=== PATIENT | female | born 1965 | race Caucasian/White ===

== ENCOUNTER 2016-12-08 21:15 | Emergency (ER) | payer BC, OTHER ==
[2016-12-08 22:08] VITALS: BP 134/94
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
--- NOTE | 2016-12-08 22:55 | RAD ---
INDICATION: Neck pain. COMPARISON: There are no prior studies available for comparison. TECHNIQUE: 5 views of the cervical spine were obtained including lateral, oblique, AP, open-mouth odontoid views. FINDINGS: C1-C7 are visualized. There is mild retrolisthesis of C5 relative the C6 of approximately 2 mm which appears to be degenerative in origin. No prevertebral soft tissue swelling or fracture is seen. There is moderate disc space narrowing and uncinate process spurring present at the C5-C6 level and mild to moderate bilateral neural foraminal narrowing at that level. IMPRESSION: 1. NO EVIDENCE FOR FRACTURE. 2. MODERATE CERVICAL SPONDYLOSIS AT THE C5-C6 LEVEL.
== END 2016-12-08 23:13 | disposition home or self-care (01) ==
LOC: UCCORT 21:15
DX: S16.1XXA Strain of muscle, fascia and tendon at neck level, initial encounter (principal); V40.5XXA Car driver injured in collision with pedestrian or animal in traffic accident, initial encounter; Y93.89 Activity, other specified; Y92.410 Unspecified street and highway as the place of occurrence of the external cause; Z88.6 Allergy status to analgesic agent; E03.9 Hypothyroidism, unspecified; K21.9 Gastro-esophageal reflux disease without esophagitis; F41.8 Other specified anxiety disorders; Z96.653 Presence of artificial knee joint, bilateral; Z96.642 Presence of left artificial hip joint; Z90.711 Acquired absence of uterus with remaining cervical stump
CPT/HCPCS: 72050; 99213; G0463

== ENCOUNTER 2017-09-11 16:58 | Emergency (ER) | payer BC ==
[2017-09-11 17:36] VITALS: BP 134/83
--- NOTE | 2017-09-11 18:40 | UC ---
Ear Complaint HPI - HPI Summary HPI Summary: URI sx x 5 days now with sinus pain and left ear pain. Swollen gland under left jaw. No cough - History of Current Complaint Chief Complaint: UCEar Stated Complaint: EAR PAIN Time Seen by Provider: 09/11/17 18:33 Hx Obtained From: Patient Hx Last Menstrual Period: 2003 Onset/Duration: Gradual Onset, Lasting Days - 5, Worse Since - today Severity Initially: Mild Severity Currently: Moderate Pain Intensity: 5 Aggravating Factors: Nothing Alleviating Factors: Nothing Associated Signs/Symptoms: Positive: Swelling @ - left submandibular gland, URI Symptoms. Negative: Discharge, Hearing Loss Related History: Seasonal Allergies - Allergies/Home Medications Allergies/Adverse Reactions: Allergies Allergy/AdvReac Type Severity Reaction Status Date / Time Acetaminophen [From Tylenol] Allergy Hives Verified 09/11/17 17:36 Aspirin Allergy Hives Verified 09/11/17 17:36 Ibuprofen Allergy Hives Verified 09/11/17 17:36 Iodine Allergy Hives Verified 09/11/17 17:36 NSAIDs Allergy Hives Verified 09/11/17 17:36 Povidone Iodine Allergy Hives Verified 09/11/17 17:36 [From Betadine] KIWI Allergy Swelling Uncoded 09/11/17 17:36 Surgical tape Allergy Rash Uncoded 09/11/17 17:36 PMH/Surg Hx/FS Hx/Imm Hx Previously Healthy: Yes Other History Of: Negative For: HIV, Hepatitis B, Hepatitis C, Anticoagulant Therapy - Surgical History Surgical History: Yes Surgery Procedure, Year, and Place: PARTIAL HYSTERECTOMY 2003. Bilat Knee replacement. Left hip replacement. Back fusion x3 separate surgeries - Family History Known Family History: Positive: Cardiac Disease, Hypertension Negative: Diabetes - Social History Occupation: Unemployed Lives: With Family Alcohol Use: None Substance Use Type: None, Prescribed Smoking Status (MU): Never Smoked Tobacco - Immunization History Most Recent Influenza Vaccination: 2016 Review of Systems Constitutional: Fever, Chills ENT: Sore Throat, Ear Ache, Nasal Discharge, Sinus Pain/Tenderness Is Patient Immunocompromised?: No All Other Systems Reviewed And Are Negative: Yes Physical Exam Triage Information Reviewed: Yes Appearance: No Pain Distress, Well-Nourished, Ill-Appearing Vital Signs: Initial Vital Signs Temp 97.5 F 09/11/17 17:28 Pulse 85 09/11/17 17:28 Resp 16 09/11/17 17:28 BP 134/83 09/11/17 17:28 Pulse Ox 100 09/11/17 17:28 Vital Signs Reviewed: Yes Eyes: Positive: Conjunctiva Clear ENT: Positive: Pharynx normal, Nasal congestion, TMs normal Neck: Positive: Tenderness @ - left anterior cervical lymph nose, Enlarged Nodes @ - left anterior Respiratory Exam: Normal Cardiovascular Exam: Normal Musculoskeletal Exam: Normal Neurological Exam: Normal Psychological Exam: Normal Skin Exam: Normal Ear Complaint Course/Dx - Differential Dx/Diagnosis Differential Diagnosis/HQI/PQRI: Cellulitis, Otitis Media, URI Provider Diagnoses: Acute URI. Acute sinusitis Discharge - Discharge Plan Condition: Stable Disposition: HOME Prescriptions: Amoxicillin PO (*) [Amoxicillin 875 MG (*)] 875 mg PO BID #20 tab Patient Education Materials: Upper Respiratory Infection (ED), Sinusitis (ED), Amoxicillin (By mouth) Referrals: Kory Arana MD [Primary Care Provider] - Additional Instructions: [employer] SINUS RINSE: CHECK OUT AT APR Saline nasal wash helps with mucous, allergies and congestion. It can be used up to twice a day or only as needed. Use lukewarm tap water. It does not have to be sterilized or distilled water. Do 1/3 on each side and snort out of both nostrils. Repeat the process with 1/6 of the bottle on each side with snorting in between to finish the solution in the bottle NASAL SPRAYS AND DROPS: Afrin in the PUMP/ MIST bottle (Get generic 12 hours nasal decongestant spray). Tilt your head down and look at the floor while doing a strong sniff with the spray. Decongestant nasal sprays and drops often give dramatic relief from congestion. They are often recommended for patients with sinus infection to assist with sinus drainage. Persons with high blood pressure should consult the doctor before using these nasal sprays. Afrin and Evaristo-Synephrine are common [id number] preparations. They should not be used for more than five days, as "rebound" congestion can occur - - the congestion flares as the drug wears off. A way of dealing with this rebound congestion problem is to medicate only one nostril each time, allowing the other nostril to recover from the medicine' s effects. When you no longer need the drug during the day, spray only one nostril each night. This helps you sleep well without severe rebound congestion. Call the doctor if you develop severe headache, palpitations, or chest pain.
[2017-09-11] MEDS ORDERED: Amoxicillin PO (*) 500 MG CAP PO ONE (18:47)
== END 2017-09-11 18:57 | disposition home or self-care (01) ==
LOC: UCCORT 16:58
DX: J06.9 Acute upper respiratory infection, unspecified (principal); J01.90 Acute sinusitis, unspecified; Z90.711 Acquired absence of uterus with remaining cervical stump; Z96.653 Presence of artificial knee joint, bilateral; Z96.642 Presence of left artificial hip joint; Z88.6 Allergy status to analgesic agent; Z88.3 Allergy status to other anti-infective agents; Z91.048 Other nonmedicinal substance allergy status
CPT/HCPCS: 99212; A9270-GY; G0463

== ENCOUNTER 2017-10-17 13:27 | Emergency (ER) | payer BC ==
[2017-10-17 14:59] VITALS: BP 123/71
--- NOTE | 2017-10-17 14:59 | UC ---
Throat Pain/Nasal Anatoliy HPI - HPI Summary HPI Summary: 52 y/o female presents to the urgent care c/o sinus congestion and sore throat, chills, body aches for the past 3 days. Pt reports she has Hx of sinusitis and requests ABX since symptoms can become severe if not TX soon. Pt states subjective low grade fever at home, w/ mild sore throat. Pain is 4/10. She is allergic to Tylenol PO and Ibuprofen. So she has taken Mucinex to alleviate symptoms. Pt deneis SOB, dizziness, chest pain, abdominal pain, N/V/D - History of Current Complaint Hx Obtained From: Patient Hx Last Menstrual Period: 2003 ?: No Onset/Duration: Gradual Onset, Lasting Days - 3 days, Still Present, Worse Since - today Severity: Moderate Pain Intensity: 4 Pain Scale Used: 0-10 Numeric Cough: None Associated Signs & Symptoms: Positive: Sinus Discomfort, Nasal Discharge, Other - +PND, DAVIS - Epiglottits Risk Factors Epiglottis Risk Factors: Negative <Mariela Irwin - Last Filed: 10/18/17 02:03> <Savanna Vizcaino - Last Filed: 10/18/17 10:43> - History of Current Complaint Stated Complaint: SINUS COMPLAINT Time Seen by Provider: 10/17/17 14:33 - Allergies/Home Medications Allergies/Adverse Reactions: Allergies Allergy/AdvReac Type Severity Reaction Status Date / Time acetaminophen Allergy Hives Verified 10/17/17 14:36 aspirin Allergy Hives Verified 10/17/17 14:36 naproxen [From Aleve] Allergy Hives Verified 10/17/17 14:36 NSAIDS (Non-Steroidal Allergy Hives Verified 10/17/17 14:36 Anti-Inflamma ibuprofen Allergy Hives Uncoded 10/17/17 14:36 iodine Allergy See Comment Uncoded 10/17/17 14:41 KIWI Allergy Swelling Uncoded 09/11/17 17:36 povidone iodine Allergy Rash Uncoded 10/17/17 14:36 Surgical tape Allergy Rash Uncoded 09/11/17 17:36 Home Medications: Home Medications Levothyroxine TAB* [Synthroid TAB*] 175 mcg PO DAILY 10/17/17 [History Confirmed 10/17/17] PMH/Surg Hx/FS Hx/Imm Hx Previously Healthy: Yes Endocrine History: Hypothyroidism Other History Of: Negative For: HIV, Hepatitis B, Hepatitis C, Anticoagulant Therapy - Surgical History Surgical History: Yes Surgery Procedure, Year, and Place: PARTIAL HYSTERECTOMY 2004. Bilat Knee replacement. Left hip replacement. Back fusion x3 separate surgeries - Family History Known Family History: Positive: Cardiac Disease, Hypertension Negative: Diabetes - Social History Occupation: Employed Full-time Lives: With Family Alcohol Use: None Substance Use Type: None, Prescribed Smoking Status (MU): Never Smoked Tobacco - Immunization History Most Recent Influenza Vaccination: 2015 <Mariela Irwin - Last Filed: 10/18/17 02:03> Review of Systems Constitutional: Fever - low grade subjective at home, Chills, Fatigue, Other - body aches Skin: Negative Eyes: Negative ENT: Sore Throat, Nasal Discharge, Sinus Congestion, Sinus Pain/Tenderness Respiratory: Negative Cardiovascular: Negative Gastrointestinal: Negative Genitourinary: Negative Motor: Negative Neurovascular: Negative Musculoskeletal: Negative Neurological: Headache Psychological: Negative Is Patient Immunocompromised?: No All Other Systems Reviewed And Are Negative: Yes <Mariela Irwin - Last Filed: 10/18/17 02:03> Physical Exam - Summary Physical Exam Summary: Vitals: reviewed General: Well developed, well-nourished female patient with NAD. Head and face: Normocephalic and atraumatic, Positive tenderness over the frontal and maxillary sinuses.. Eyes: PERRLA, EOMI x 2. Normal conjunctiva. No eye discharge. ENT: Ears and TM with normal limits. Nose: with yellowish discharge and erythematous mucosa. Pharynx with erythema , no exudate. Neck: Supple, no JVD, no carotid bruits and no lymphadenopathy. Lungs: clear, no rales, no rhonchi, no wheezes. CVS: RRR, S1 and S2 present no murmurs or gallops appreciated. Abdomen: soft nontender with positive bowel sounds. Extremities: no edema noted. Neuro: WNL. Skin: warm and dry Triage Information Reviewed: Yes <Mariela Irwin - Last Filed: 10/18/17 02:03> Vital Signs: Initial Vital Signs Temp 97.7 F 10/17/17 14:51 Pulse 64 10/17/17 14:51 Resp 20 10/17/17 14:51 BP 123/71 10/17/17 14:51 Pulse Ox 100 10/17/17 14:51 <Savanna Vizcaino - Last Filed: 10/18/17 10:43> Throat Pain/Nasal Course/Dx - Course Course Of Treatment: 52 y/o female presents to the urgent care c/o sinus congestion and sore throat, chills, body aches for the past 3 days. Pt reports she has Hx of sinusitis and requests ABX since symptoms can become severe if not TX soon. Pt states subjective low grade fever at home, w/ mild sore throat. Pain is 4/10. She is allergic to Tylenol PO and Ibuprofen. she has taken Mucinex to alleviate symptoms. Pt deneis SOB, dizziness, chest pain, abdominal pain, N/V/D. Hx obtained. Pt w/ acute sinusitis on examination. Rapid Influenza A&B ordered: negative. Pt educated on symptomatic Tx. Pt still requests ABX. Pt with Hx of recurrent sinusitis. Pt Rx Augmentin PO and flonase nasal spray. Discharge instructions explained to Pt. Advised to Return to the clinic or PCP if symptoms do not improve.Pt understood and agreed with plan of care. - Differential Dx/Diagnosis Differential Diagnosis/HQI/PQRI: Influenza, Pharyngitis, Sinusitis, URI Provider Diagnoses: 1- Acute bacterial sinusitis <Mariela Irwin - Last Filed: 10/18/17 02:03> Discharge <Mariela Irwin - Last Filed: 10/18/17 02:03> <Savanna Vizcaino - Last Filed: 10/18/17 10:43> - Discharge Plan Condition: Stable Disposition: HOME Prescriptions: Amoxicillin/Clavulanate TAB* [Augmentin TAB 875*] 875 mg PO BID #20 tab Fluticasone NASAL SPRAY 50MCG* [Flonase NASAL SPRAY 50MCG*] 2 spray BOTH NARES DAILY #1 btl Patient Education Materials: Sinusitis (ED) Referrals: Kory Arana MD [Primary Care Provider] - 3 Days Additional Instructions: 1- Please increase fluid intake and rest. take full course of antibiotic to avoid resistance 2-Use Flonase as directed to help drain fluid. Also buy saline drops to clear sinuses 3-Return to the clinic or PCP if symptoms do not improve for further management and treatment Attestation Statement User Type: Provider - I was available for consult. This patient was seen by the KENDAL. The patient was not presented to, seen by, or examined by me. Ramya <Savanna Vizcaino - Last Filed: 10/18/17 10:43>
== END 2017-10-17 15:48 | disposition home or self-care (01) ==
LOC: UCCORT 13:27
DX: J01.90 Acute sinusitis, unspecified (principal); B96.89 Other specified bacterial agents as the cause of diseases classified elsewhere; Z88.8 Allergy status to other drugs, medicaments and biological substances; E03.9 Hypothyroidism, unspecified
CPT/HCPCS: 87502; 99212; G0463